=== PATIENT | male | born 1980 | race Caucasian/White ===

== ENCOUNTER → 2022-07-18 | Outpatient (CLI) | payer OTHER | LOC: M RAD 07:31 | PROVIDERS: ATTEND Physician Assistant | DX: M94.262 Chondromalacia, left knee (principal); M71.22 Synovial cyst of popliteal space [Baker], left knee ==

== ENCOUNTER 2023-04-15 11:53 | Day surgery (SDC) | payer OTHER ==
[~2023-04-15] VITALS: Ht 185.4 cm; Wt 112.4 kg
[~2023-04-15 11:53] MED LIST: NS 1,000 ML IV ONE; OMEP40CA5 PO
[2023-04-15] MEDS ORDERED: propofoL 200 MG/20 ML VIAL As Ordered ONE (12:53)
[2023-04-15] MEDS ORDERED: fentaNYL 100 MCG/2 ML INJECTION As Ordered ONE (13:10)
[2023-04-15 13:26] VITALS: TEMP 97.4
[2023-04-15 13:53] VITALS: BP 114/75; O2SAT 98
== END 2023-04-15 13:55 | disposition home or self-care (01) ==
LOC: M OPP 11:53
PROVIDERS: ATTEND Internal Medicine Gastroenterology
DX: K21.00 Gastro-esophageal reflux disease with esophagitis, without bleeding (principal); R12 Heartburn; Z79.899 Other long term (current) drug therapy
CPT/HCPCS: 43239; 88305; J3010

== ENCOUNTER → 2023-08-07 | Outpatient (CLI) | payer OTHER ==
[~2023-08-07] MED LIST changes: -NS 1,000 ML IV ONE
== END ==
LOC: M RAD 07:05
PROVIDERS: ATTEND Physician Assistant Surgical
DX: M25.531 Pain in right wrist (principal)